=== PATIENT | female | born 1960 | race African-American/Black ===

== ENCOUNTER 2021-06-05 05:27 | Day surgery (SDC) | payer OTHER ==
[2021-06-04 15:35] VITALS: BMI 40.9
[2021-06-05] MEDS ORDERED: DEXAMETHASONE SOD PHOSPHATE 4 MG/1 ML VIAL ONE (15:47)
[2021-06-05] MEDS ORDERED: LIDOCAINE HCL/PF 2% SDV 5ML VIAL ONE (15:47)
[2021-06-05] MEDS ORDERED: PROPOFOL 20 ML ONE ×2 (15:47→16:03)
[2021-06-05] MEDS ORDERED: MIDAZOLAM HCL 2 MG/2 ML SINGLE DOSE VIAL ONE (15:48)
[2021-06-05] MEDS ORDERED: oxyCODONE HCL 5 MG TABLET PO PRN (16:45)
[2021-06-05] MEDS ORDERED: LACTATED RINGERS SOLUTION 1,000 ML IV SCH (16:45)
[2021-06-05] MEDS ORDERED: ONDANSETRON 4 MG/2 ML VIAL IVPUSH PRN (16:45)
[2021-06-05 17:59] VITALS: BP 125/73; PULSE 61; TEMP 97.2
== END 2021-06-05 17:40 | disposition home or self-care (01) ==
LOC: JASU-SURG 05:27
PROVIDERS: ATTEND Obstetrics & Gynecology
PROC: 0UDB7ZX Extraction of Endometrium, Via Natural or Artificial Opening, Diagnostic (ICD-10-PCS; 2021-06-05)
PROC: 0UJD8ZZ Inspection of Uterus and Cervix, Via Natural or Artificial Opening Endoscopic (ICD-10-PCS; 2021-06-05)
PROC: 0UB98ZZ Excision of Uterus, Via Natural or Artificial Opening Endoscopic (ICD-10-PCS; principal; 2021-06-05 14:30)
PROC: 0UB97ZX Excision of Uterus, Via Natural or Artificial Opening, Diagnostic (ICD-10-PCS; 2021-06-05 14:30)
DX: D25.0 Submucous leiomyoma of uterus (principal); N84.0 Polyp of corpus uteri
CPT/HCPCS: 82962; 86850; 86900; 86901; 88305-TC; 93005; 93010; 94760

== ENCOUNTER 2022-08-27 15:21 | Emergency (ER) | payer OTHER ==
[2022-08-27 15:46] VITALS: TEMP 97.4; BMI 40.7
[2022-08-27] MEDS ORDERED: ACETAMINOPHEN 325 MG TABLET (FP) PO ONE (18:07)
[2022-08-27] MEDS ORDERED: SODIUM CHLORIDE 500 ML IV STA (18:31)
[2022-08-27 18:32] LABS: BASO % 0.3 % (0-2.0); EOS % 0.4 % (0-4.5); HEMATOCRIT 39.7 % (32.4-45.2); HEMOGLOBIN 12.6 GM/dL (10.7-15.3); MCH 26.3 pg (25.7-33.7); MCHC 31.6 g/dl (32.0-36.0); MEAN CELL VOLUME 83.1 fl (80-96); MEAN PLT VOLUME 9.6 fl (7.5-11.1); MONO % 6.2 % (3.8-10.2); NEUT % 66.1 % (42.8-82.8); PLATELET COUNT 235 10^3/uL (134-434); RBC 4.78 M/mm3 (3.60-5.2); RDW 15.3 % (11.6-15.6); WHITE BLOOD COUNT 7.8 K/mm3 (4.0-10.0)
[2022-08-27 18:44] LABS: INR 1.08 (0.83-1.09); PROTHROMBIN TIME (PATIENT) 12.5 SEC (9.7-13.0)
[2022-08-27 18:47] LABS: ACTIVATED PTT 27.6 SECONDS (25.2-36.5)
[2022-08-27 19:02] LABS: CALCIUM 9.2 mg/dL (8.5-10.1)
[2022-08-27 19:03] LABS: BLOOD UREA NITROGEN 17.6 mg/dL (7-18)
[2022-08-27 19:06] LABS: CREATININE 1.1 mg/dL (0.55-1.3)
[2022-08-27 19:08] LABS: BILIRUBIN,TOTAL 0.3 mg/dL (0.2-1); TOT PROT 7.3 g/dl (6.4-8.2)
[2022-08-27] MEDS ORDERED: ACETAMINOPHEN 325 MG TABLET (FP) ONE (20:17)
[2022-08-27] MEDS ORDERED: ASPIRIN 81 MG CHEWABLE TABLETS PO ONE (21:07)
[2022-08-27] MEDS ORDERED: ASPIRIN 81 MG CHEWABLE TABLETS ONE (21:39)
[2022-08-27 21:46] VITALS: BP 160/73; PULSE 91; RESP 16
== END 2022-08-27 22:24 | disposition short-term general hospital (02) ==
LOC: JER 15:21
PROC: 3E0337Z Introduction of Electrolytic and Water Balance Substance into Peripheral Vein, Percutaneous Approach (ICD-10-PCS; principal; 2022-08-27)
DX: S12.200A Unspecified displaced fracture of third cervical vertebra, initial encounter for closed fracture (principal); R55 Syncope and collapse; R77.8 Other specified abnormalities of plasma proteins; W19.XXXA Unspecified fall, initial encounter; Z20.822 Contact with and (suspected) exposure to COVID-19
CPT/HCPCS: 0241U-QW; 36415; 70450-TC; 71045-TC-FY; 72125-TC; 73110-TC-LT-FY; 73110-TC-RT-FY; 73130-TC-LT-FY; 73130-TC-RT-FY; 80053; 84484; 85025; 85610; 85730; 93005; 93010; 99285-25